=== PATIENT | female | born 2000 | race Caucasian/White ===

== ENCOUNTER 2022-07-24 10:42 | Outpatient (CLI) | payer OTHER, SELFPAY ==
[2022-07-24 15:26] LABS: Cholesterol* 136 mg/dL (90-199)
[2022-07-24 15:27] LABS: Glucose* 85 mg/dL (60-115); HDL Cholesterol* 64 mg/dL (>=50); LDL Cholesterol Calculated 44 mg/dL (<100); Triglycerides* 142 mg/dL (40-149)
== END 2022-07-24 10:43 | disposition home or self-care (01) ==
PROVIDERS: PCP Physician Assistant Medical; Visit Provider Physician Assistant Medical
DX: Z01.419 Encounter for gynecological examination (general) (routine) without abnormal findings (principal); Z13.6 Encounter for screening for cardiovascular disorders; Z13.1 Encounter for screening for diabetes mellitus
CPT/HCPCS: 80061; 82947